=== PATIENT | female | born 1980 | race Caucasian/White ===

== ENCOUNTER 2020-05-27 14:29 | Inpatient (IN) | payer MEDICAID, SELFPAY ==
[2020-05-27] VITALS (8 sets, daily range): BP systolic 117–146; BP diastolic 72–103; PULSE 76–102; RESP 18–20; TEMP 36.4–37.2; O2SAT 97–98; BMI 27.2; BMI 27.3
--- NOTE | 2020-05-27 15:24 | ED.DCSUM_ITS ---
History of Present Illness Chief Complaint: Substance Abuse Informant: Patient Narrative: Patient is here requesting alcohol detox. She last drank yesterday she drinks 3 pints of vodka every day. She denies any other drugs. She has no other comorbidities. Past Medical History Past Medical History: - - Alcoholism Alcohol: Heavy Review of Systems General: Denies: Fever Cardiovascular: Denies: Chest pain, Palpitations Respiratory: Denies: Dyspnea, Cough Gastrointestinal: Denies: Abdominal pain, Nausea Genitourinary: Denies: Dysuria Musculoskeletal: Denies: Myalgias Neurological: Denies: Headache Psych: Denies: Depression Endocrine: Denies: Polyuria Hematologic: Denies: Easy bruising Physical Exam Vital Signs/Narrative: Vital Signs Temp Pulse Resp BP 05/27/20 14:30 97.6 F L 102 H 20 H 123/97 H General: Well nourished, Well developed ENT: Moist mucous membranes Neck: Supple Cardiovascular: Regular rate, Regular rhythm Respiratory: No distress, CTA bilaterally Abdomen: Soft, Nontender Back: Nontender, Normal Inspection Extremities: Nontender Skin: Normal color Neurological: Alert, Normal Strength, Normal Sensation Diagnostic/Tx/Re-eval - Medical Decision Making Patient is stable. She will be admitted to our hospital for detox ED Disposition - Plan for ED Patient: Disposition: Acute Care Hospital [facility] Diagnosis: Admitted to alcohol detoxification center
--- NOTE | 2020-05-27 15:58 | PCM.HP.STD ---
<Evelyn Pascual RADIO INTERFERENCE SUPERVISOR - Last Filed: 05/27/20 16:18> Problem List (1) Admitted to alcohol detoxification center Status: Acute (2) Bipolar disorder Status: Chronic History of Present Illness Date of Admission: 05/27/20 Chief Complaint: Alcohol detox. The patient is a 39 year old F who presents to the emergency room requesting detox from alcohol. She reports drinking 3 pints of vodka daily for the past several years. She states her last drink was yesterday afternoon. Patient was seen at [facility] earlier today for their detox program however there was no bed availability. She currently complains of diarrhea, nausea, vomiting, abdominal cramping, feeling hot and cold and anxiety. Patient states she wants to get sober for her kids. She states she has had a seizure in the past related to alcohol withdrawal. She was in a detox program approximately 5 years ago, has not had recent treatment. She denies other drug use. Reports half pack per day cigarette use. She has a history of bipolar disorder. 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 Denies: Abdominal Pain Genitourinary: Denies: Dysuria Musculoskeletal: Denies: Joint Pain, Joint Tenderness Skin: Denies: Rash, Wounds Neurological: Denies: Numbness, Tingling, Focal weakness Psychiatric: Denies: Anxiety, Depression, Homicidal Ideations, Suicidal Ideations Hematologic/ Lymphatic: Denies: Easy Bruising, Easy Bleeding VTE Information - Inpt Only VTE Present on Admission: No VTE Mechan Device Prophylaxis: None VTE Pharm Prophylaxis ordered?: No Reason prophylaxis not ordered:: Treatment Not Indicated Patient Problems: Active and Suspected Problems Admitted to alcohol detoxification center (Acute) - Physical Exam Vitals/I&O's: Vital Signs Temp Pulse Resp BP Pulse Ox 98.7 F 83 18 117/87 H 97 05/27/20 15:54 05/27/20 15:54 05/27/20 15:54 05/27/20 15:54 05/27/20 15:54 Oxygen Delivery Method Room Air Weight: 149 lb Body Mass Index (BMI) 27.2 General: Alert, Oriented x3, Cooperative HEENT: Atraumatic, PERRLA, EOMI, Normocephalic Oral: Dry Mucosa Neck: Supple, No JVD, Negative Carotid Bruits Lungs: Clear to auscultation, Normal air movement Cardiovascular: Regular rate, No murmurs Abdomen: Bowel Sounds Present, Soft, Non Tender, Non-Distended Extremities: No clubbing, No cyanosis, No edema, Capillary Refill Less than 3 Seconds Skin: No rashes, No breakdown Musculoskeletal: No Tenderness to Palpation of Joints or Extremities Neurological: Cranial nerves II-XII grossly intact, Neuro grossly intact Psych/Mental Status: Anxious Laboratory Results 05/27/20 15:47: WBC Pending, RBC Pending, Hgb Pending, Hct Pending, MCV Pending, MCH Pending, MCHC Pending, RDW Std Deviation Pending, RDW Coeff of Av Pending, Plt Count Pending, Neut % (Auto) Pending, Absolute Neuts (auto) Pending 05/27/20 15:47: Sodium Pending, Potassium Pending, Chloride Pending, Carbon Dioxide Pending, Anion Gap Pending, BUN Pending, Creatinine Pending, Est GFR (MDRD) Af Amer Pending, Est GFR (MDRD) Non-Af Pending, BUN/Creatinine Ratio Pending, Glucose Pending, Calcium Pending, Total Bilirubin Pending, AST Pending, ALT Pending, Alkaline Phosphatase Pending, Total Protein Pending, Albumin Pending 05/27/20 15:47: Ethyl Alcohol Pending 05/27/20 15:47: Serum , Qual Pending Assessment/Plan All Active Problems Admitted to alcohol detoxification center (Acute) 1. Alcohol withdrawal, chronic alcohol dependence-medical stabilization per protocol. Phenobarb taper. BMP, tox screen pending. As needed regimen for somatic complaints. [facility] consult. CIWA/Ativan protocol. Folic acid, thiamine, multivitamin supplementation. 2. Tobacco dependence-encourage cessation. Nicotine replacement patch. 3. Bipolar depression-continue Zyprexa, Celexa. DVT prophylaxis-not indicated, low risk This patient was seen by LUIS Yee under the supervision of Dr. Puri. <Kylie Puri - Last Filed: 05/27/20 18:58> History of Present Illness Agree with the above and the following is a reflection of my independent history and physical exam. Ms Han is a 39 year old F who presents for EtOH detox. Last drink yesterday. Drinks 3-4 pints per day and has done so for about 2 yrs. Has been sober before but has been overstressed as her is ill on HD and her mother is dying of metastatic ovarian cancer. She states that she has to get sober for her kids (8 and 10 yo boys). She is currently eating. Past Medical History Allergies No Known Allergies Allergy (Verified 05/27/20 15:50) Review of Systems Constitutional: Reports: Chills, Malaise. Denies: Anorexia, Fever, Night Sweats, Weakness, Weight Change, Fatigue HEENT: Reports: Difficulty Hearing Cardiovascular: Denies: Chest Pain, Chest Pressure, Chest Tightness, Edema, Orthopnea, Palpitations Respiratory: Denies: Cough, Shortness of Breath, Sputum production, Wheezing Gastrointestinal: Reports: Diarrhea, Nausea, Vomiting. Denies: Abdominal Pain, Constipation, Dyspepsia, Hematemesis, Hematochezia, Melena Genitourinary: Denies: Dysuria Musculoskeletal: Denies: Joint Pain, Joint stiffness, Joint swelling, Joint Tenderness Neurological: Reports: Tremor. Denies: Focal weakness, Headaches, Numbness, Tingling, Seizures Psychiatric: Reports: Anxiety, Depression Endocrine: Denies: Change in Body Habitus, Heat/ Cold Intolerance, Polydipsia Hematologic/ Lymphatic: Denies: Anemia, Easy Bruising, Easy Bleeding - Physical Exam Vitals/I&O's: Vital Signs Temp Pulse Resp BP Pulse Ox 98.9 F 88 18 120/74 98 05/27/20 18:00 05/27/20 18:00 05/27/20 18:00 05/27/20 18:00 05/27/20 18:00 Oxygen Delivery Method Room Air Weight: 67.585 kg Body Mass Index (BMI) 27.2 Intake and Output for Last 24 Hours 05/25/20 05/26/20 05/27/20 23:59 23:59 23:59 Intake Total 350 / 350 Balance 350 / 350 General: Alert, Oriented x3, Cooperative, No apparent distress, Well developed, Well nourished, - - middle aged WF sitting up in bed eating fast food HEENT: Atraumatic, PERRLA, EOMI, Normocephalic, EAC Clear Oral: Dry Mucosa Neck: Supple, Trachea Midline, Thyroid Normal Size and Texture Lungs: Clear to auscultation, Normal air movement Cardiovascular: Regular rate, Regular Rhythm, Normal S1, Normal S2, No murmurs, No rub noted, No Gallop Abdomen: Bowel Sounds Present, Soft, Non Tender, Non-Distended Extremities: No clubbing, No cyanosis, No edema, Capillary Refill Less than 3 Seconds, Peripheral Pulses Normal Skin: No rashes, No breakdown Neurological: Cranial nerves II-XII grossly intact, Neuro grossly intact Psych/Mental Status: Anxious, - - pleasant Laboratory Results 05/27/20 15:47: WBC 3.6 L, RBC 4.54, Hgb 13.8, Hct 40.9, MCV 90.1, MCH 30.4, MCHC 33.7, RDW Std Deviation 43.0, RDW Coeff of Av 13.0, Plt Count 268, MPV 9.3, Immature Gran % (Auto) 0.300, Neut % (Auto) 64.0, Lymph % (Auto) 26.5, [place] % (Auto) 8.0, Eos % (Auto) 0.6, Baso % (Auto) 0.6, Absolute Neuts (auto) 2.3, Absolute Lymphs (auto) 0.96, Nucleated RBC % 0 05/27/20 15:47: Sodium 138, Potassium 3.6, Chloride 105, Carbon Dioxide 19.0 L, Anion Gap 14, BUN 15, Creatinine 0.87, Estim Creat Clear Calc 68.66, Est GFR (MDRD) Af Amer 93, Est GFR (MDRD) Non-Af 77, BUN/Creatinine Ratio 17.2, Glucose 76, Calcium 8.8, Total Bilirubin 0.40, AST 39 H, ALT 36, Alkaline Phosphatase 125 H, Total Protein 7.1, Albumin 3.5, Globulin 3.6, Albumin/Globulin Ratio 1.0 05/27/20 15:47: Ethyl Alcohol 153.0 05/27/20 15:47: Serum , Qual NEGATIVE 05/27/20 15:59: Urine Opiates Screen NEGATIVE, Urine Methadone Screen NEGATIVE, Ur Barbiturates Screen NEGATIVE, Ur Phencyclidine Scrn NEGATIVE, Ur Amphetamines Screen NEGATIVE, U Methamphetamin-MDMA NEGATIVE, U Benzodiazepines Scrn NEGATIVE, Urine Cocaine Screen NEGATIVE, U Cannabinoids Screen POSITIVE H, Ur Drug Screen Comment Current Medications Acetaminophen (Acetaminophen 325 Mg Tablet) 650 mg PO Q6H PRN PRN PRN Reason: Pain Score 1-10/Temp > 100.7 F Dicyclomine HCl (Dicyclomine 10 Mg Capsule) 20 mg PO Q6H PRN PRN PRN Reason: abdominal discomfort Folic Acid (Folic Acid 1 Mg Tablet) 1 mg PO DAILY@0800 [facility] Stop: 05/30/20 08:01 Last Admin: 05/27/20 17:18 Dose: 1 mg Documented by: Gabapentin (Gabapentin 300 Mg Capsule) 300 mg PO Q8H PRN PRN PRN Reason: moderate to severe anxiety Hydroxyzine Pamoate (Hydroxyzine Amy 25 Mg Capsule) 50 mg PO Q4H PRN PRN PRN Reason: mild anxiety Ibuprofen (Ibuprofen 400 Mg Tablet) 400 mg PO Q4H PRN PRN PRN Reason: Pain Score 1-10/Temp > 100.7 F Loperamide HCl (Loperamide 2 Mg Capsule) 2 mg PO Q4H PRN PRN PRN Reason: LOOSE STOOLS Lorazepam (Lorazepam 1 Mg Tablet) 2 mg PO Q2H PRN PRN; Protocol PRN Reason: CIWA score > 8 but <15 Lorazepam (Lorazepam 1 Mg Tablet) 2 mg PO UD PRN; Protocol PRN Reason: CIWA score >/=15. Lorazepam (Lorazepam 2 Mg/Ml Syringe) 2 mg IV Q2H PRN PRN; Protocol PRN Reason: CIWA score > 8 but <15 Lorazepam (Lorazepam 2 Mg/Ml Syringe) 2 mg IV UD PRN; Protocol PRN Reason: CIWA score >/=15. Multivitamins/Minerals (Multivitamins,Ther W-Minerals Tablet) 1 tablet PO DAILYCM [facility] Ondansetron HCl (Ondansetron 8 Mg Tablet) 8 mg PO Q8H PRN PRN PRN Reason: NAUSEA Last Admin: 05/27/20 17:18 Dose: 8 mg Documented by: Phenobarbital (Phenobarbital 32.4 Mg Tablet) 97.2 mg PO Q4H LASHAY; Taper Stop: 06/01/20 01:29 Last Admin: 05/27/20 17:21 Dose: 97.2 mg Documented by: Sodium Chloride (0.9% Saline Lock 10 Ml Syringe) 10 - 40 ml IV UD PRN PRN Reason: SALINE FLUSH Thiamine HCl (Thiamine Hydrochloride 100 Mg Tablet) 100 mg PO BIDCM [facility] Stop: 05/30/20 08:01 Last Admin: 05/27/20 18:04 Dose: 100 mg Documented by: Trazodone HCl (Trazodone 100 Mg Tablet) 100 mg PO QHS PRN PRN Reason: INSOMNIA Assessment/Plan ASSESSMENT Acute EtOH Withdrawal Leukopenia Mild Metabolic Acidosis Bipolar d/o Tobacco Abuse THC use PLAN -detox protocol with Phenobarb and prn ativan -repeat am BMP -nicotine patch -180 consult -suspect LOS to be 3-5 days Inpatient E&M: 64318 Init Hosp L2
[2020-05-27 16:02] LABS: Absolute Lymphocyte Count 0.96 X10^3/uL (0.83-4.51); Absolute Neutrophil Count 2.3 X10^3/uL (2.0-7.7); Basophil# 0.02 X10^3/uL; Basophil% 0.6 % (0-1); Eosinophil# 0.02 X10^3/uL; Eosinophils% 0.6 % (0-5); Hematocrit 40.9 % (37-47); Hemoglobin 13.8 g/dL (12.0-15.0); Lymphocyte # 0.96 X10^3/ul (4.0); Lymphocyte % 26.5 % (19-41); Mean Corp Hgb Conc 33.7 g/dL (32-36); Mean Corpuscular Hgb 30.4 pg (27.0-32.0); Mean Corpuscular Volume 90.1 fL (81-99); Mean Platelet Vol. 9.3 fl (6.2-12.0); Monocyte# 0.29 X10^3/uL; NRBC Flagged by Analyzer 0 % (0-5); Neutrophil # 2.32 X10^3/uL (2.7-7.7); Platelet Count 268 K/mm3 (150-450); Red Blood Count 4.54 M/mm3 (4.2-5.4); White Blood Count 3.6 K/mm3 (4.4-11.0)
--- NOTE | 2020-05-27 16:05 | CM.ED ---
Social Work Consult: Substance Abuse Informant: Self Referral Met with patient in room. Introduced self and social media marketer role. Patient reports to be seeking help for alcohol use/abuse. Patient wanting to discontinue alcohol use. Patient reports to consume 4-5 pints of vodka a day. Patient seeking medical management of withdrawal symptoms. Patient reports main motivator as my kids. Patient reports that children are home with patient father currently. Patient reports to being diagnosed with Bi-polar that is managed by patient medication. Patient denies suicidal thoughts/plans/intents. Patient reports to have a therapist. Patient follows with [facility] for counseling services. Patient verbally agreeing to [facility] contract. Patient with no current questions. Telephone call to [facility] Treatment Navigator, no answer. Voicemail left requesting return phone call. Karen HUTTON, ZULEMA
[2020-05-27 16:20] LABS: AST(SGOT) 39 U/L (15-37); Alanine Aminotransfer ALT/SGPT 36 U/L (13-56); Albumin, Serum 3.5 g/dL (3.2-5.0); Alkaline Phosphatase 125 U/L (45-117); Anion Gap 14 (5-15); BUN 15 mg/dL (7-18); BUN/Creat Ratio 17.2 RATIO (10-20); Calcium,Total 8.8 mg/dL (8.5-10.1); Chloride 105 mmol/L (98-107); Creatinine, Serum 0.87 mg/dL (0.55-1.02); EST Glomerular Filtration Rate 77 mL/min (>60); Est Glom Filt Rate - Afr Amer 93 mL/min (>60); Estimated Creatinine Clearance 68.66 ml/min; Globulin 3.6 g/dL (2.2-4.2); Glucose 76 mg/dL (74-106); Internal QC Validated? YES +Cl - CLEAR BKGD; Potassium 3.6 mmol/L (3.5-5.1); Pregnancy, Serum, hCG Quali. NEGATIVE Negative; Protein, Total 7.1 g/dL (6.4-8.2); Sodium Level 138 mmol/L (136-145)
--- NOTE | 2020-05-27 16:33 | CM.ED ---
Social Work Telephone call received from [facility] treatment navigator, Homero. This social media marketing analyst updated [facility] on patient admission. Karen Howell MSW, JEOVANNY-S
[2020-05-27 16:35] LABS: Amphetamine Urine VISTA NEGATIVE (<1000 ng/mL); Barbiturate Urine VISTA NEGATIVE (< 200 ng/mL); Benzodiazepine Urine VISTA NEGATIVE (< 200 ng/mL); Cocaine Urine VISTA NEGATIVE (< 300 ng/mL); Ecstacy Urine VISTA NEGATIVE (< 500 ng/mL); Methadone Urine VISTA NEGATIVE (< 300 ng/mL); PCP Urine VISTA NEGATIVE (< 25 ng/mL); THC Urine VISTA POSITIVE (< 50 ng/mL); Vista UDS pH Range 6
[2020-05-27] MEDS: Folic Acid 1 MG Tablet PO (17:18)
[2020-05-27] MEDS: Ondansetron 8 MG Tablet PO (17:18)
[2020-05-27] MEDS: Phenobarbital 32.4 MG Tablet 64.8 MG PO ×2 (17:21→21:26)
[2020-05-27] MEDS: Thiamine Hydrochloride 100 MG Tablet PO (18:04)
[2020-05-27 20:35] LABS: Anion Gap 8 (5-15); BUN 17 mg/dL (7-18); Calcium,Total 8.8 mg/dL (8.5-10.1); Chloride 104 mmol/L (98-107); Creatinine, Serum 0.94 mg/dL (0.55-1.02); EST Glomerular Filtration Rate 70 mL/min (>60); Est Glom Filt Rate - Afr Amer 84 mL/min (>60); Estimated Creatinine Clearance 63.55 ml/min; Glucose 133 mg/dL (74-106); Potassium 3.4 mmol/L (3.5-5.1); Sodium Level 137 mmol/L (136-145)
[2020-05-27] MEDS: Gabapentin 300 MG Capsule PO (21:26)
[2020-05-27] MEDS: traZODone 100 MG Tablet PO (21:26)
[2020-05-28 01:03] VITALS: BP 119/71; PULSE 69; RESP 16; TEMP 36.7; O2SAT 97
[2020-05-28] MEDS: Ibuprofen 400 MG Tablet PO (01:14)
[2020-05-28 01:15] VITALS: PULSE 68
[2020-05-28] MEDS: Phenobarbital 32.4 MG Tablet 64.8 MG PO ×6 (01:15→21:18)
[2020-05-28 05:11] VITALS: BP 126/72; PULSE 66; RESP 16; TEMP 37; O2SAT 98
--- NOTE | 2020-05-28 07:52 | PCM.PN.HOSP ---
Patient Problems: Active and Suspected Problems Admitted to alcohol detoxification center (Acute) Reason for Visit: Acute alcohol withdrawal Subjective: Patient is a 39-year-old lady with history of chronic alcohol dependence who presented with acute alcohol withdrawal admitted to regular nursing floor for medical stabilization Objective: GENERAL: cooperative but patient is tearful HEENT: Atraumatic; EYES; Anicteric, Normal Conjunctiva NECK; supple, normal thyroid, RESPIRATORY: Diminished to auscultation CARDIOVASCULAR: Regular S1 S2, GI: soft, normoactive bowel sounds, : No Renal angle tenderness; EXTREMITIES: No edema, no clubbing, MUSCULOSKELETAL: no muscle waisting NEURO: Awake; no lateralizing signs. SKIN: No Rash PSYCH; tearful Vitals/I&O's: Vital Signs Temp Pulse Resp BP Pulse Ox 98.6 F 66 16 126/72 H 98 05/28/20 05:11 05/28/20 05:11 05/28/20 05:11 05/28/20 05:11 05/28/20 05:11 Oxygen Delivery Method Room Air Weight: 67.585 kg Body Mass Index (BMI) 27.2 Intake and Output for Last 24 Hours 05/26/20 05/27/20 05/28/20 23:59 23:59 23:59 Intake Total 350 / 350 Balance 350 / 350 Laboratory Results 05/27/20 15:47: WBC 3.6 L, RBC 4.54, Hgb 13.8, Hct 40.9, MCV 90.1, MCH 30.4, MCHC 33.7, RDW Std Deviation 43.0, RDW Coeff of Av 13.0, Plt Count 268, MPV 9.3, Immature Gran % (Auto) 0.300, Neut % (Auto) 64.0, Lymph % (Auto) 26.5, [place] % (Auto) 8.0, Eos % (Auto) 0.6, Baso % (Auto) 0.6, Absolute Neuts (auto) 2.3, Absolute Lymphs (auto) 0.96, Nucleated RBC % 0 05/27/20 15:47: Sodium 138, Potassium 3.6, Chloride 105, Carbon Dioxide 19.0 L, Anion Gap 14, BUN 15, Creatinine 0.87, Estim Creat Clear Calc 68.66, Est GFR (MDRD) Af Amer 93, Est GFR (MDRD) Non-Af 77, BUN/Creatinine Ratio 17.2, Glucose 76, Calcium 8.8, Total Bilirubin 0.40, AST 39 H, ALT 36, Alkaline Phosphatase 125 H, Total Protein 7.1, Albumin 3.5, Globulin 3.6, Albumin/Globulin Ratio 1.0 05/27/20 15:47: Ethyl Alcohol 153.0 05/27/20 15:47: Serum , Qual NEGATIVE 05/27/20 15:59: Urine Opiates Screen NEGATIVE, Urine Methadone Screen NEGATIVE, Ur Barbiturates Screen NEGATIVE, Ur Phencyclidine Scrn NEGATIVE, Ur Amphetamines Screen NEGATIVE, U Methamphetamin-MDMA NEGATIVE, U Benzodiazepines Scrn NEGATIVE, Urine Cocaine Screen NEGATIVE, U Cannabinoids Screen POSITIVE H, Ur Drug Screen Comment 05/27/20 20:11: Sodium 137, Potassium 3.4 L, Chloride 104, Carbon Dioxide 25.0, Anion Gap 8, BUN 17, Creatinine 0.94, Estim Creat Clear Calc 63.55, Est GFR (MDRD) Af Amer 84, Est GFR (MDRD) Non-Af 70, BUN/Creatinine Ratio 18.0, Glucose 133 H, Calcium 8.8 Current Medications Acetaminophen (Acetaminophen 325 Mg Tablet) 650 mg PO Q6H PRN PRN PRN Reason: Pain Score 1-10/Temp > 100.7 F Dicyclomine HCl (Dicyclomine 10 Mg Capsule) 20 mg PO Q6H PRN PRN PRN Reason: abdominal discomfort Folic Acid (Folic Acid 1 Mg Tablet) 1 mg PO DAILY@0800 [facility] Stop: 05/30/20 08:01 Last Admin: 05/27/20 17:18 Dose: 1 mg Documented by: Gabapentin (Gabapentin 300 Mg Capsule) 300 mg PO Q8H PRN PRN PRN Reason: moderate to severe anxiety Last Admin: 05/27/20 21:26 Dose: 300 mg Documented by: Hydroxyzine Pamoate (Hydroxyzine Amy 25 Mg Capsule) 50 mg PO Q4H PRN PRN PRN Reason: mild anxiety Ibuprofen (Ibuprofen 400 Mg Tablet) 400 mg PO Q4H PRN PRN PRN Reason: Pain Score 1-10/Temp > 100.7 F Last Admin: 05/28/20 01:14 Dose: 400 mg Documented by: Loperamide HCl (Loperamide 2 Mg Capsule) 2 mg PO Q4H PRN PRN PRN Reason: LOOSE STOOLS Lorazepam (Lorazepam 1 Mg Tablet) 2 mg PO Q2H PRN PRN; Protocol PRN Reason: CIWA score > 8 but <15 Lorazepam (Lorazepam 1 Mg Tablet) 2 mg PO UD PRN; Protocol PRN Reason: CIWA score >/=15. Lorazepam (Lorazepam 2 Mg/Ml Syringe) 2 mg IV Q2H PRN PRN; Protocol PRN Reason: CIWA score > 8 but <15 Lorazepam (Lorazepam 2 Mg/Ml Syringe) 2 mg IV UD PRN; Protocol PRN Reason: CIWA score >/=15. Multivitamins/Minerals (Multivitamins,Ther W-Minerals Tablet) [facility] Ondansetron HCl (Ondansetron 8 Mg Tablet) 8 mg PO Q8H PRN PRN PRN Reason: NAUSEA Last Admin: 05/27/20 17:18 Dose: 8 mg Documented by: Phenobarbital (Phenobarbital 32.4 Mg Tablet) 97.2 mg PO Q4H LASHAY; Taper Stop: 06/01/20 01:29 Last Admin: 05/28/20 05:18 Dose: 97.2 mg Documented by: Sodium Chloride (0.9% Saline Lock 10 Ml Syringe) 10 - 40 ml IV UD PRN PRN Reason: SALINE FLUSH Thiamine HCl (Thiamine Hydrochloride 100 Mg Tablet) 100 mg PO BIDCM [facility] Stop: 05/30/20 08:01 Last Admin: 05/27/20 18:04 Dose: 100 mg Documented by: Trazodone HCl (Trazodone 100 Mg Tablet) 100 mg PO QHS PRN PRN Reason: INSOMNIA Last Admin: 05/27/20 21:26 Dose: 100 mg Documented by: STROKE Vital Signs/Narrative: Vital Signs Temp Pulse Resp BP Pulse Ox 05/28/20 05:11 98.6 F 66 16 126/72 H 98 Medical Necessity - Tobacco Use Smoking Status: Current every day smoker Tobacco Use: Cigarettes Assessment/Plan All Active Problems Admitted to alcohol detoxification center (Acute) Patient is a 39-year-old lady with history of chronic alcohol dependence who presented with acute alcohol withdrawal admitted to regular nursing floor for medical stabilization 1. Acute alcohol withdrawal ?Admitted to regular nursing floor currently being managed with phenobarb taper as well as symptomatic treatment with supporting agents 2. Chronic alcohol dependence ?Counseled on cessation 3. Bipolar disorder ?Patient is on Zyprexa and Celexa did continue 4. Tobacco dependence - Counseled on cessation, offered nicotine patch for tobacco cravings 5. DVT prophylaxis ?Low risk did encourage early ambulation 6. Hypokalemia ?Corrected per protocol Inpatient E&M: 66559 Subs Hosp L2
[2020-05-28] MEDS: hydrOXYzine PAM 25 MG Capsule 50 MG PO ×2 (08:11→17:10)
[2020-05-28] MEDS: Folic Acid 1 MG Tablet PO (08:53)
[2020-05-28] MEDS: Multivitamins,Ther W-Minerals Tablet 1 TABLET PO (08:53)
[2020-05-28] MEDS: Thiamine Hydrochloride 100 MG Tablet PO ×2 (08:53)
[2020-05-28 09:00] VITALS: BP 120/101; PULSE 69; RESP 18; TEMP 36.9; O2SAT 98
--- NOTE | 2020-05-28 09:53 | ADDICTION ---
This fiction and nonfiction writer prose met with patient in her room to conduct ASAM, AUDIT and MSE assessments and to discuss discharge plan. Patient was alert and oriented x4 and presented with depressed mood and tearful affect. She reported that she was ingesting 5 pints of vodka/day prior to engaging in medical withdrawal management. She appears appropriate for medical withdrawal management (4.0 LOC). She refused residential recommendation. She plans to follow up with her primary counselor with the [facility] for counseling and reports that the counselor has set up AoD services for her with a separate clinician. She states that her will provide transport following discharge.
[2020-05-28] MEDS: LORazepam 1 MG Tablet 2 MG PO (10:24)
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
[2020-05-28 14:33] VITALS: BP 107/77; PULSE 78; RESP 18; TEMP 36.7; O2SAT 100
[2020-05-28] MEDS: Acetaminophen 325 MG Tablet 650 MG PO (14:38)
[2020-05-28 20:33] VITALS: BP 154/132; PULSE 66; RESP 16; TEMP 36.6; O2SAT 99
[2020-05-29] MEDS: Phenobarbital 32.4 MG Tablet 64.8 MG PO ×6 (01:23→20:42)
[2020-05-29 02:33] VITALS: BP 135/91; PULSE 80; RESP 16; TEMP 36.4; O2SAT 99
--- NOTE | 2020-05-29 07:54 | PN_ITS ---
Patient Problems: Active and Suspected Problems Admitted to alcohol detoxification center (Acute) Reason for Visit: Acute alcohol withdrawal Subjective: Patient seen still complains of anxiety and is tearful during the discussion. She had threatened to sign out AGAINST MEDICAL ADVICE the day before however she rescinded her decision. Objective: GENERAL: cooperative HEENT: Atraumatic; EYES; Anicteric, Normal Conjunctiva NECK; supple, normal thyroid, RESPIRATORY: Diminished to auscultation CARDIOVASCULAR: Regular S1 S2, GI: soft, normoactive bowel sounds, : No Renal angle tenderness; EXTREMITIES: No edema, no clubbing, MUSCULOSKELETAL: no muscle waisting NEURO: Awake; no lateralizing signs. SKIN: No Rash PSYCH; flat affect Vitals/I&O's: Vital Signs Temp Pulse Resp BP Pulse Ox 97.6 F L 80 16 135/91 H 99 05/29/20 02:33 05/29/20 02:33 05/29/20 02:33 05/29/20 02:33 05/29/20 02:33 Oxygen Delivery Method Room Air Weight: 67.585 kg Body Mass Index (BMI) 27.2 Intake and Output for Last 24 Hours 05/27/20 05/28/20 05/29/20 23:59 23:59 23:59 Intake Total 350 / 350 960 / 1440 1080 / 1080 Balance 350 / 350 960 / 1440 1080 / 1080 Current Medications Acetaminophen (Acetaminophen 325 Mg Tablet) 650 mg PO Q6H PRN PRN PRN Reason: Pain Score 1-10/Temp > 100.7 F Last Admin: 05/28/20 14:38 Dose: 650 mg Documented by: Dicyclomine HCl (Dicyclomine 10 Mg Capsule) 20 mg PO Q6H PRN PRN PRN Reason: abdominal discomfort Folic Acid (Folic Acid 1 Mg Tablet) 1 mg PO DAILY@0800 [facility] Stop: 05/30/20 08:01 Last Admin: 05/28/20 08:53 Dose: 1 mg Documented by: Gabapentin (Gabapentin 300 Mg Capsule) 300 mg PO Q8H PRN PRN PRN Reason: moderate to severe anxiety Last Admin: 05/27/20 21:26 Dose: 300 mg Documented by: Hydroxyzine Pamoate (Hydroxyzine Amy 25 Mg Capsule) 50 mg PO Q4H PRN PRN PRN Reason: mild anxiety Last Admin: 05/28/20 17:10 Dose: 50 mg Documented by: Ibuprofen (Ibuprofen 400 Mg Tablet) 400 mg PO Q4H PRN PRN PRN Reason: Pain Score 1-10/Temp > 100.7 F Last Admin: 05/28/20 01:14 Dose: 400 mg Documented by: Loperamide HCl (Loperamide 2 Mg Capsule) 2 mg PO Q4H PRN PRN PRN Reason: LOOSE STOOLS Lorazepam (Lorazepam 1 Mg Tablet) 2 mg PO Q2H PRN PRN; Protocol PRN Reason: CIWA score > 8 but <15 Lorazepam (Lorazepam 1 Mg Tablet) 2 mg PO UD PRN; Protocol PRN Reason: CIWA score >/=15. Last Admin: 05/28/20 10:24 Dose: 2 mg Documented by: Lorazepam (Lorazepam 2 Mg/Ml Syringe) 2 mg IV Q2H PRN PRN; Protocol PRN Reason: CIWA score > 8 but <15 Lorazepam (Lorazepam 2 Mg/Ml Syringe) 2 mg IV UD PRN; Protocol PRN Reason: CIWA score >/=15. Multivitamins/Minerals (Multivitamins,Ther W-Minerals Tablet) [facility] Last Admin: 05/28/20 08:53 Dose: 1 tablet Documented by: Nicotine (Nicotine 21 Mg Patch) 21 mg TRANSDERM. DAILY [facility] Last Admin: 05/28/20 08:51 Dose: 21 mg Documented by: Ondansetron HCl (Ondansetron 8 Mg Tablet) 8 mg PO Q8H PRN PRN PRN Reason: NAUSEA Last Admin: 05/27/20 17:18 Dose: 8 mg Documented by: Phenobarbital (Phenobarbital 32.4 Mg Tablet) 64.8 mg PO Q4H [facility]; Taper Stop: 06/01/20 01:29 Last Admin: 05/29/20 05:41 Dose: 64.8 mg Documented by: Potassium Chloride (Potassium Chloride 20 Meq Tablet) [facility] Last Admin: 05/28/20 17:11 Dose: 20 meq Documented by: Sodium Chloride (0.9% Saline Lock 10 Ml Syringe) 10 - 40 ml IV UD PRN PRN Reason: SALINE FLUSH Thiamine HCl (Thiamine Hydrochloride 100 Mg Tablet) [facility] Stop: 05/30/20 08:01 Last Admin: 05/28/20 08:53 Dose: 100 mg Documented by: Trazodone HCl (Trazodone 100 Mg Tablet) 100 mg PO QHS PRN PRN Reason: INSOMNIA Last Admin: 05/27/20 21:26 Dose: 100 mg Documented by: Medical Necessity - Tobacco Use Smoking Status: Current every day smoker Tobacco Use: Cigarettes Assessment/Plan All Active Problems Admitted to alcohol detoxification center (Acute) Patient is a 39-year-old lady with history of chronic alcohol dependence who presented with acute alcohol withdrawal admitted to regular nursing floor for medical stabilization 1. Acute alcohol withdrawal ?Admitted to regular nursing floor currently being managed with phenobarb taper as well as symptomatic treatment with supporting agents -05/29/2020 Patient seen still complains of anxiety and is tearful during the discussion. She had threatened to sign out AGAINST MEDICAL ADVICE the day before however she rescinded her decision. 2. Chronic alcohol dependence ?Counseled on cessation 3. Bipolar disorder ?Patient is on Zyprexa and Celexa did continue 4. Tobacco dependence - Counseled on cessation, offered nicotine patch for tobacco cravings 5. DVT prophylaxis ?Low risk did encourage early ambulation 6. Hypokalemia ?Corrected per protocol Inpatient E&M: 03895 Subs Hosp L2
[2020-05-29 09:29] VITALS: BP 144/98; PULSE 95; RESP 18; TEMP 36.6; O2SAT 100
[2020-05-29] MEDS: hydrOXYzine PAM 25 MG Capsule 50 MG PO ×2 (09:34→14:26)
[2020-05-29] MEDS: Gabapentin 300 MG Capsule PO (09:34)
[2020-05-29] MEDS: Multivitamins,Ther W-Minerals Tablet 1 TABLET PO (09:35)
[2020-05-29] MEDS: Folic Acid 1 MG Tablet PO (09:35)
[2020-05-29] MEDS: Thiamine Hydrochloride 100 MG Tablet PO ×2 (09:35→17:58)
[2020-05-29 12:00] VITALS: BP 130/78; PULSE 78; RESP 16; TEMP 36.6; O2SAT 99
[2020-05-29 14:23] VITALS: BP 138/97; PULSE 82; RESP 18; TEMP 36.6; O2SAT 99
[2020-05-29 17:53] VITALS: BP 134/91; PULSE 78; RESP 18; TEMP 36.3; O2SAT 97
[2020-05-29 20:33] VITALS: BP 139/106; PULSE 79; RESP 16; TEMP 36.6; O2SAT 99
[2020-05-29] MEDS: traZODone 100 MG Tablet PO (20:42)
[2020-05-30 00:56] VITALS: BP 128/89; PULSE 82; RESP 16; TEMP 36.5; O2SAT 100
[2020-05-30] MEDS: hydrOXYzine PAM 25 MG Capsule 50 MG PO ×3 (00:57→11:13)
[2020-05-30] MEDS: Gabapentin 300 MG Capsule PO (00:57)
[2020-05-30] MEDS: Phenobarbital 32.4 MG Tablet 64.8 MG PO ×2 (00:57→06:30)
[2020-05-30 06:23] VITALS: BP 118/84; PULSE 69; RESP 16; TEMP 36.5; O2SAT 100
[2020-05-30 09:08] VITALS: BP 135/87; PULSE 76; RESP 18; TEMP 36.6; O2SAT 100
[2020-05-30] MEDS: Multivitamins,Ther W-Minerals Tablet 1 TABLET PO (09:12)
[2020-05-30] MEDS: Folic Acid 1 MG Tablet PO (09:12)
[2020-05-30] MEDS: Thiamine Hydrochloride 100 MG Tablet PO (09:12)
--- NOTE | 2020-05-30 09:44 | PCM.DC ---
- Discharge Diagnoses Current Active Problems: Current Active and Chronic Problems Admitted to alcohol detoxification center (Acute) Bipolar disorder (Chronic) You will use the following diet at home:: No restrictions Your food should be the consistency of: Regular Discharge Activity: Return to Normal Activity Allergies/Adverse Reactions: Allergies No Known Allergies Allergy (Verified 05/27/20 15:50) Medications to take at Discharge Citalopram [Celexa] 40 mg PO DAILY 05/27/20 Ergocalciferol (Vitamin D2) [Vitamin D2] 50,000 unit PO MOFR 05/27/20 Hydroxyzine HCl 25 - 50 mg PO QHS 05/27/20 Olanzapine [Zyprexa] 2.5 mg PO QHS 05/27/20 Primary Care Physician: Landy Sanchez NP, CALLISTHENICS INSTRUCTOR-C [Primary Care Provider] - Please follow up with your Primary Care Physician in: in 1-2 weeks Test Results: Test results from this visit will be discussed in further detail at your follow-up appointment, if applicable. Proposed Discharge Date: 05/30/20
--- NOTE | 2020-05-30 09:45 | PCM.DC.SUM ---
Discharge Date and Diagnosis - Problem List Patient Problems: Active and Suspected Problems Admitted to alcohol detoxification center (Acute) Date of Admission: 05/27/20 Date of Discharge: 05/30/20 - Primary Discharge Diagnosis Acute Problems: Active Problems Admitted to alcohol detoxification center (Acute) - Secondary Discharge Diagnosis Chronic Problems: Chronic Problems Bipolar disorder (Chronic) Hospital Course and Treatment Summary of Care Provided: Patient is a 39-year-old lady with history of chronic alcohol dependence who presented with acute alcohol withdrawal admitted to regular nursing floor for medical stabilization 1. Acute alcohol withdrawal ?Admitted to regular nursing floor currently being managed with phenobarb taper as well as symptomatic treatment with supporting agents -05/29/2020 Patient seen still complains of anxiety and is tearful during the discussion. She had threatened to sign out AGAINST MEDICAL ADVICE the day before however she rescinded her decision. ?05/30/2020. Patient seen clinical condition much improved. Stable for discharge. Patient will continue to follow-up with her previously scheduled outpatient counseling 2. Chronic alcohol dependence ?Counseled on cessation 3. Bipolar disorder ?Patient is on Zyprexa and Celexa did continue 4. Tobacco dependence - Counseled on cessation, offered nicotine patch for tobacco cravings 5. DVT prophylaxis ?Low risk did encourage early ambulation 6. Hypokalemia ?Corrected per protocol Patient Problems: Active and Suspected Problems Admitted to alcohol detoxification center (Acute) Objective: GENERAL: cooperative HEENT: Atraumatic; EYES; Anicteric, Normal Conjunctiva NECK; supple, normal thyroid, RESPIRATORY: Diminished to auscultation CARDIOVASCULAR: Regular S1 S2, GI: soft, normoactive bowel sounds, : No Renal angle tenderness; EXTREMITIES: No edema, no clubbing, MUSCULOSKELETAL: no muscle waisting NEURO: Awake; no lateralizing signs. SKIN: No Rash PSYCH; flat affect - Physical Exam Vitals/I&O's: Vital Signs Temp Pulse Resp BP Pulse Ox 97.9 F 76 18 135/87 H 100 05/30/20 09:08 05/30/20 09:08 05/30/20 09:08 05/30/20 09:08 05/30/20 09:08 Oxygen Delivery Method Room Air Weight: 67.585 kg Body Mass Index (BMI) 27.2 Intake and Output for Last 24 Hours 05/28/20 05/29/20 05/30/20 23:59 23:59 23:59 Intake Total 960 / 1440 2029 1000 / 1000 Balance 960 / 1440 2029 1000 / 1000 Current Medications Acetaminophen (Acetaminophen 325 Mg Tablet) 650 mg PO Q6H PRN PRN PRN Reason: Pain Score 1-10/Temp > 100.7 F Last Admin: 05/28/20 14:38 Dose: 650 mg Documented by: Dicyclomine HCl (Dicyclomine 10 Mg Capsule) 20 mg PO Q6H PRN PRN PRN Reason: abdominal discomfort Gabapentin (Gabapentin 300 Mg Capsule) 300 mg PO Q8H PRN PRN PRN Reason: moderate to severe anxiety Last Admin: 05/30/20 00:57 Dose: 300 mg Documented by: Hydroxyzine Pamoate (Hydroxyzine Amy 25 Mg Capsule) 50 mg PO Q4H PRN PRN PRN Reason: mild anxiety Last Admin: 05/30/20 06:29 Dose: 50 mg Documented by: Ibuprofen (Ibuprofen 400 Mg Tablet) 400 mg PO Q4H PRN PRN PRN Reason: Pain Score 1-10/Temp > 100.7 F Last Admin: 05/28/20 01:14 Dose: 400 mg Documented by: Loperamide HCl (Loperamide 2 Mg Capsule) 2 mg PO Q4H PRN PRN PRN Reason: LOOSE STOOLS Lorazepam (Lorazepam 1 Mg Tablet) 2 mg PO Q2H PRN PRN; Protocol PRN Reason: CIWA score > 8 but <15 Lorazepam (Lorazepam 1 Mg Tablet) 2 mg PO UD PRN; Protocol PRN Reason: CIWA score >/=15. Last Admin: 05/28/20 10:24 Dose: 2 mg Documented by: Lorazepam (Lorazepam 2 Mg/Ml Syringe) 2 mg IV Q2H PRN PRN; Protocol PRN Reason: CIWA score > 8 but <15 Lorazepam (Lorazepam 2 Mg/Ml Syringe) 2 mg IV UD PRN; Protocol PRN Reason: CIWA score >/=15. Multivitamins/Minerals (Multivitamins,Ther W-Minerals Tablet) [facility] Last Admin: 05/30/20 09:12 Dose: 1 tablet Documented by: Nicotine (Nicotine 21 Mg Patch) 21 mg TRANSDERM. DAILY [facility] Last Admin: 05/29/20 10:23 Dose: 21 mg Documented by: Ondansetron HCl (Ondansetron 8 Mg Tablet) 8 mg PO Q8H PRN PRN PRN Reason: NAUSEA Last Admin: 05/27/20 17:18 Dose: 8 mg Documented by: Phenobarbital (Phenobarbital 32.4 Mg Tablet) 64.8 mg PO Q6H [facility]; Taper Stop: 06/01/20 01:29 Last Admin: 05/30/20 06:30 Dose: 64.8 mg Documented by: Potassium Chloride (Potassium Chloride 20 Meq Tablet) 20 meq PO BIDCM [facility] Last Admin: 05/30/20 09:11 Dose: 20 meq Documented by: Sodium Chloride (0.9% Saline Lock 10 Ml Syringe) 10 - 40 ml IV UD PRN PRN Reason: SALINE FLUSH Trazodone HCl (Trazodone 100 Mg Tablet) 100 mg PO QHS PRN PRN Reason: INSOMNIA Last Admin: 05/29/20 20:42 Dose: 100 mg Documented by: Discharge Diet: No Restrictions Discharge Activity: Return to Normal Activity Home Medications: Medications to take at Discharge Citalopram [Celexa] 40 mg PO DAILY 05/27/20 Ergocalciferol (Vitamin D2) [Vitamin D2] 50,000 unit PO MOFR 05/27/20 Hydroxyzine HCl 25 - 50 mg PO QHS 05/27/20 Olanzapine [Zyprexa] 2.5 mg PO QHS 05/27/20 Primary Care Physician: Landy Sanchez NP, EXCHANGE ENGINEER-C [Primary Care Provider] - Please follow up with your Primary Care Physician in: in 1-2 weeks Disposition: Home Minutes spent on discharge:: 35 Patient Condition:: Stable Medical Necessity - Tobacco Use Smoking Status: Current every day smoker Tobacco Use: Cigarettes Meaningful Use Info Meaningful Use Diagnoses (Choose all that apply): None applicable Inpatient E&M: 11616 Disch Hosp
[2020-05-30 11:14] VITALS: BP 135/92; PULSE 91; RESP 18; O2SAT 100
== END 2020-05-30 12:23 | disposition home or self-care (01) | DRG 775 ==
LOC: ED 15:36 → MS3 16:34
PROVIDERS: Admitting Provider Internal Medicine; Emergency Provider Emergency Medicine; Visit Provider Internal Medicine
DX: F10.239 Alcohol dependence with withdrawal, unspecified (principal); E87.2 Acidosis; E87.6 Hypokalemia; D72.819 Decreased white blood cell count, unspecified; F31.30 Bipolar disorder, current episode depressed, mild or moderate severity, unspecified; F32.9 Major depressive disorder, single episode, unspecified; F41.9 Anxiety disorder, unspecified; F17.210 Nicotine dependence, cigarettes, uncomplicated; Z79.899 Other long term (current) drug therapy
CPT/HCPCS: 36415; 80048; 80053; 80307; 80320; 84703; 85025; 97802; 99283; 99406; A4216; G0480